=== PATIENT | female | born 1955 | race Caucasian/White ===

== ENCOUNTER 2018-01-30 13:50 | Inpatient (IN) | payer MEDICARE, MEDICAID, OTHER ==
[~2018-01-30] VITALS: Ht 152.4 cm; Wt 77.7 kg
[2018-01-30] MEDS ORDERED: ipratropium/albuterol 3ml nebule NEB ONE (14:00)
[2018-01-30] MEDS ORDERED: normal saline 1000ML IV soln IV ONE (14:00)
[2018-01-30] MEDS ORDERED: CefTRIAXone 2gm/D5W 50ml 50 ML IV ONE (14:00)
[2018-01-30 14:24] LABS: BASOPHILS # (AUTO) 0.1 X10'3 (0-0.2); BASOPHILS % (AUTO) 0.5 % (0-1); EOSINOPHILS # (AUTO) 0.1 X10'3 (0-0.9); EOSINOPHILS % (AUTO) 0.5 % (0-6); HEMATOCRIT 30.2 % (35.0-45.0); HEMOGLOBIN 9.9 g/dl (12.0-16.0); LYMPHOCYTES # (AUTO) 1.7 X10'3 (1.1-4.8); LYMPHOCYTES % (AUTO) 7.9 % (21-51); MEAN CORPUSCULAR HEMOGLOBIN 27.2 PG (27.0-31.0); MEAN CORPUSCULAR HGB CONC 32.8 % (33.0-36.5); MEAN CORPUSCULAR VOLUME 82.9 FL (78-98); MEAN PLATELET VOLUME 11.5 FL (7.4-10.4); MONOCYTES # (AUTO) 1.6 X10'3 (0-0.9); MONOCYTES % (AUTO) 7.5 % (2-12); NEUTROPHILS # (AUTO) 17.6 X10'3 (1.8-7.7); NEUTROPHILS % (AUTO) 83.6 % (42-75); PLATELET COUNT 240 X10'3 (140-440); RED BLOOD COUNT 3.64 X10'6 (4.20-5.60); RED CELL DISTRIBUTION WIDTH 15.4 % (11.5-14.5); WHITE BLOOD COUNT 21.1 X10'3 (4.5-11.0)
[2018-01-30 14:34] LABS: INR 1.1 INR; PARTIAL THROMBOPLASTIN TIME 29 SECONDS (22-32)
[2018-01-30 14:39] LABS: ALANINE AMINOTRANSFERASE 18 U/L (12-78); ALBUMIN/GLOBULIN RATIO 0.9 (1.1-1.5); ALKALINE PHOSPHATASE 58 IU/L (46-116); ANION GAP 7 (8-16); ASPARTATE AMINO TRANSFERASE 21 U/L (10-37); BILIRUBIN,TOTAL 0.6 MG/DL (0.1-1.0); BLOOD UREA NITROGEN 22 MG/DL (7-18); BUN/CREATININE RATIO 15.2 (6.6-38.0); CHLORIDE 105 MMOL/L (99-107); CREATININE 1.45 MG/DL (0.40-0.90); GLUCOSE 102 MG/DL (70-104); MAGNESIUM 1.2 MG/DL (1.5-2.4); POTASSIUM 4.2 MMOL/L (3.5-5.1); SODIUM 137 MMOL/L (135-145); TOTAL CARBON DIOXIDE 25.3 MMOL/L (24-32); TOTAL PROTEIN 6.5 G/DL (6.4-8.2); eGFR 36 ML/MIN
[2018-01-30] MEDS ORDERED: mag hydrox/Alum hydrox/simeth 30ml oral suspension PO PRN (14:55)
[2018-01-30] MEDS ORDERED: magnesium 1gm/100ml D5W IVPB 100 ML IV PRN (14:55)
[2018-01-30] MEDS ORDERED: magnesium hydroxide 30ml (MOM) UD suspension PO PRN (14:55)
[2018-01-30] MEDS ORDERED: potassium Cl 40MEQ/NS 500ml 500 ML IV PRN ×2 (14:55)
[2018-01-30] MEDS ORDERED: magnesium Cl slow-release 64mg tablet PO PRN (14:55)
[2018-01-30] MEDS ORDERED: magnesium 4gm in 100ml NS 100 ML IV PRN (14:55)
[2018-01-30] MEDS ORDERED: ondansetron/PF 4mg/2ml inj IV PRN (14:55)
[2018-01-30] MEDS ORDERED: acetaminophen 325mg tablet PO PRN (14:55)
[2018-01-30] MEDS ORDERED: HYDROmorphone inj. 0.5 MG/0.5 ML DISP.SYRIN IV PRN (14:55)
[2018-01-30] MEDS ORDERED: potassium Cl 20 mEq SR tablet PO PRN ×2 (14:55)
[2018-01-30 14:57] LABS: CLARITY,URINE SLIGHTLY CLOUDY (Clear); COLOR,URINE YELLOW (Yellow); GLUCOSE, URINE NEGATIVE (Neg); KETONES,URINE NEGATIVE (Neg); LEUKOCYTE ESTERASE ,URINE SMALL (Neg); NITRITES, URINE NEGATIVE (Neg); OCCULT BLOOD,URINE NEGATIVE (Neg); PROTEIN,URINE NEGATIVE (Neg)
[2018-01-30 15:00] LABS: UA COLLECTION TYPE CLN CATCH MIDSTREAM
[2018-01-30] MEDS ORDERED: CHOL2000 PO (15:02)
[2018-01-30] MEDS ORDERED: MECL-111 PO (15:02)
[2018-01-30] MEDS ORDERED: METF500T PO (15:02)
[2018-01-30] MEDS ORDERED: TIOT18CA3 INH (15:02)
[2018-01-30] MEDS ORDERED: MONT10TA21 PO (15:02)
[2018-01-30] MEDS ORDERED: FLUT16SP2 BOTHNARES (15:02)
[2018-01-30] MEDS ORDERED: PROP60TA19 PO (15:02)
[2018-01-30] MEDS ORDERED: FELO5TAB4 PO (15:02)
[2018-01-30] MEDS ORDERED: DIAZ5TAB4 PO (15:02)
[2018-01-30] MEDS ORDERED: FENO160T13 PO (15:02)
[2018-01-30] MEDS ORDERED: CITA-278 PO (15:02)
[2018-01-30] MEDS ORDERED: NAPR-996 PO (15:02)
[2018-01-30] MEDS ORDERED: SIMV20TA5 PO (15:02)
[2018-01-30 15:05] LABS: BACTERIA,URINE FEW /HPF (Neg); HYALINE CASTS 0-3 /LPF (NEGATIVE); MUCUS STRANDS FEW /LPF (Neg); RBC,URINE 0-2 /HPF (0-2); SQUAMOUS EPITHELIAL CELL,UR MODERATE /LPF (FEW); WBC,URINE 0-4 /HPF (0-4)
[2018-01-30] MEDS ORDERED: HYDROmorphone 1 mg/ml syringe IV PRN (15:18)
[2018-01-30] MEDS: levoFLOXACIN-Levaquin 750MG/D5 150 ML IV SCH (15:22)
[2018-01-30 16:00] VITALS: BP 104/56
[2018-01-30] MEDS: normal saline 1000ml 1,000 ML IV SCH ×2 (16:36→23:45)
[2018-01-30] MEDS ORDERED: glucagon, human recombinant 1mg kit SUBCUT PRN (16:50)
[2018-01-30] MEDS ORDERED: insulin Lispro (HumaLOG) vial - multi-dose SQ SCH (16:50)
[2018-01-30] MEDS ORDERED: dextrose 50%-water 50ml dispensing syringe IV PRN ×2 (16:50)
[2018-01-30] MEDS ORDERED: dextrose ORAL solution 15 GM/59 ML bottle PO PRN ×2 (16:50)
[2018-01-30] MEDS ORDERED: MESSAGE TO PHARMACY PO ONE (16:50)
[2018-01-30 17:04] LABS: HEMOGLOBIN A1C 6.5 % (4.5-6.2)
[2018-01-30] MEDS: metroNIDAZOLE-Flagyl 500mg/NS 100 ML IV SCH ×2 (17:27→23:43)
[2018-01-30 18:50] VITALS: BP 134/69
[2018-01-30] MEDS: heparin, porcine 5000 units/ml vial SQ SCH (19:57)
[2018-01-30] MEDS: insulin glargine (Lantus) pen - multi-dose SQ SCH (21:00)
[2018-01-30 23:00] VITALS: BP 115/66
[2018-01-31 02:00] VITALS: BP 130/43
[2018-01-31 06:24] LABS: BASOPHILS % (AUTO) 0 % (0-1); EOSINOPHILS # (AUTO) 0.1 X10'3 (0-0.9); EOSINOPHILS % (AUTO) 0.3 % (0-6); HEMOGLOBIN 10.1 g/dl (12.0-16.0); LYMPHOCYTES # (AUTO) 1.2 X10'3 (1.1-4.8); LYMPHOCYTES % (AUTO) 5.6 % (21-51); MEAN CORPUSCULAR HEMOGLOBIN 27.1 PG (27.0-31.0); MEAN CORPUSCULAR HGB CONC 32.4 % (33.0-36.5); MEAN CORPUSCULAR VOLUME 83.6 FL (78-98); MEAN PLATELET VOLUME 11.2 FL (7.4-10.4); MONOCYTES # (AUTO) 1.3 X10'3 (0-0.9); MONOCYTES % (AUTO) 6.3 % (2-12); NEUTROPHILS # (AUTO) 18.2 X10'3 (1.8-7.7); NEUTROPHILS % (AUTO) 87.8 % (42-75); PLATELET COUNT 242 X10'3 (140-440); RED BLOOD COUNT 3.71 X10'6 (4.20-5.60); RED CELL DISTRIBUTION WIDTH 16.7 % (11.5-14.5); WHITE BLOOD COUNT 20.8 X10'3 (4.5-11.0)
[2018-01-31 06:43] LABS: ALANINE AMINOTRANSFERASE 18 U/L (12-78); ALBUMIN 2.8 G/DL (3.4-5.0); ALBUMIN/GLOBULIN RATIO 0.7 (1.1-1.5); ALKALINE PHOSPHATASE 57 IU/L (46-116); ANION GAP 9 (8-16); ASPARTATE AMINO TRANSFERASE 17 U/L (10-37); BILIRUBIN,TOTAL 0.3 MG/DL (0.1-1.0); BLOOD UREA NITROGEN 14 MG/DL (7-18); BUN/CREATININE RATIO 10.2 (6.6-38.0); CALCIUM 8.2 MG/DL (8.5-10.1); CHLORIDE 103 MMOL/L (99-107); CREATININE 1.37 MG/DL (0.40-0.90); GLUCOSE 142 MG/DL (70-104); MAGNESIUM 3.1 MG/DL (1.5-2.4); POTASSIUM 3.9 MMOL/L (3.5-5.1); SODIUM 135 MMOL/L (135-145); TOTAL CARBON DIOXIDE 22.6 MMOL/L (24-32); TOTAL PROTEIN 6.6 G/DL (6.4-8.2); eGFR 39 ML/MIN
[2018-01-31 07:00] VITALS: BP 122/75
[2018-01-31] MEDS: heparin, porcine 5000 units/ml vial SQ SCH ×2 (07:17→20:54)
[2018-01-31] MEDS: metroNIDAZOLE-Flagyl 500mg/NS 100 ML IV SCH (07:17)
[2018-01-31] MEDS: levoFLOXACIN-Levaquin 750MG/D5 150 ML IV SCH (07:17)
[2018-01-31] MEDS: K and/or MAG REPLACEMENT MC SCH (08:00)
[2018-01-31 08:35] LABS: ANISOCYTOSIS 1+; LARGE PLATELETS FEW; PLATELET ESTIMATE NORMAL; TOTAL CELLS COUNTED 100
[2018-01-31] MEDS: normal saline 1000ml 1,000 ML IV SCH ×2 (10:51→20:51)
[2018-01-31 11:00] VITALS: BP 124/59
[2018-01-31 15:00] VITALS: BP 133/69
[2018-01-31] MEDS: piperacillin/tazo 3.375gm/50ml 50 ML IV SCH ×2 (15:09→20:55)
[2018-01-31] MEDS ORDERED: non-formulary drug (Meclizine HCl 1 TAB) PO PRN (16:40)
[2018-01-31] MEDS ORDERED: meclizine 12.5mg tablet PO PRN (16:50)
[2018-01-31 18:00] VITALS: BP 132/72
[2018-01-31] MEDS ORDERED: non-formulary drug (Propranolol Hcl 1 TAB) PO SCH (20:00)
[2018-01-31] MEDS: lactobacillus rhamnosus 10,000 MMU CELLS/CAPSULE PO SCH (20:54)
[2018-01-31] MEDS: atorvastatin 10mg tablet PO SCH (20:55)
[2018-01-31] MEDS: propranolol 40mg tablet PO SCH (20:56)
[2018-01-31] MEDS ORDERED: non-formulary drug (Simvastatin* (Zocor*) 1 TAB) PO SCH (21:00)
[2018-01-31] MEDS: insulin glargine (Lantus) pen - multi-dose SQ SCH (21:00)
[2018-01-31 22:00] VITALS: BP 111/54
[2018-02-01] MEDS: piperacillin/tazo 3.375gm/50ml 50 ML IV SCH ×4 (01:43→20:36)
[2018-02-01 02:00] VITALS: BP 108/61
[2018-02-01 06:00] VITALS: BP 109/50
[2018-02-01 06:28] LABS: BASOPHILS % (AUTO) 0 % (0-1); EOSINOPHILS % (AUTO) 0.2 % (0-6); HEMATOCRIT 28.4 % (35.0-45.0); HEMOGLOBIN 9.2 g/dl (12.0-16.0); LYMPHOCYTES # (AUTO) 1.5 X10'3 (1.1-4.8); LYMPHOCYTES % (AUTO) 7.7 % (21-51); MEAN CORPUSCULAR HEMOGLOBIN 26.7 PG (27.0-31.0); MEAN CORPUSCULAR HGB CONC 32.3 % (33.0-36.5); MEAN CORPUSCULAR VOLUME 82.5 FL (78-98); MEAN PLATELET VOLUME 11.2 FL (7.4-10.4); MONOCYTES # (AUTO) 1.5 X10'3 (0-0.9); MONOCYTES % (AUTO) 7.8 % (2-12); NEUTROPHILS # (AUTO) 15.9 X10'3 (1.8-7.7); NEUTROPHILS % (AUTO) 84.3 % (42-75); PLATELET COUNT 224 X10'3 (140-440); RED BLOOD COUNT 3.44 X10'6 (4.20-5.60); RED CELL DISTRIBUTION WIDTH 16.2 % (11.5-14.5); WHITE BLOOD COUNT 18.9 X10'3 (4.5-11.0)
[2018-02-01 06:47] LABS: ALANINE AMINOTRANSFERASE 17 U/L (12-78); ALBUMIN 2.4 G/DL (3.4-5.0); ALBUMIN/GLOBULIN RATIO 0.6 (1.1-1.5); ALKALINE PHOSPHATASE 67 IU/L (46-116); ANION GAP 10 (8-16); ASPARTATE AMINO TRANSFERASE 20 U/L (10-37); BILIRUBIN,TOTAL 0.4 MG/DL (0.1-1.0); BLOOD UREA NITROGEN 11 MG/DL (7-18); BUN/CREATININE RATIO 8.3 (6.6-38.0); CALCIUM 7.9 MG/DL (8.5-10.1); CHLORIDE 105 MMOL/L (99-107); CREATININE 1.33 MG/DL (0.40-0.90); GLUCOSE 112 MG/DL (70-104); MAGNESIUM 1.6 MG/DL (1.5-2.4); POTASSIUM 3.9 MMOL/L (3.5-5.1); SODIUM 138 MMOL/L (135-145); TOTAL CARBON DIOXIDE 23.5 MMOL/L (24-32); TOTAL PROTEIN 6.2 G/DL (6.4-8.2); eGFR 40 ML/MIN
[2018-02-01 07:11] LABS: LARGE PLATELETS FEW; PLATELET ESTIMATE NORMAL
[2018-02-01] MEDS: K and/or MAG REPLACEMENT MC SCH (07:26)
[2018-02-01] MEDS: vitamin D (cholecalciferol) 1,000 unit tablet PO SCH (07:38)
[2018-02-01] MEDS: amLODIPine 5mg tablet PO SCH (07:38)
[2018-02-01] MEDS: lactobacillus rhamnosus 10,000 MMU CELLS/CAPSULE PO SCH ×2 (07:40→20:23)
[2018-02-01] MEDS: citalopram 20mg tablet PO SCH (07:40)
[2018-02-01] MEDS: diazepam 5mg tablet PO SCH (07:41)
[2018-02-01] MEDS: montelukast 10mg tablet PO SCH (07:41)
[2018-02-01] MEDS: propranolol 40mg tablet PO SCH ×2 (07:42→20:23)
[2018-02-01] MEDS: fluticasone nasal spray 16GM bottle NS SCH (07:42)
[2018-02-01] MEDS: heparin, porcine 5000 units/ml vial SQ SCH ×2 (07:43→20:23)
[2018-02-01] MEDS: fenofibrate 145mg tablet PO SCH (07:44)
[2018-02-01] MEDS: normal saline 1000ml 1,000 ML IV SCH ×3 (07:54→20:36)
[2018-02-01] MEDS ORDERED: FENOFIBRATE PO SCH (08:00)
[2018-02-01] MEDS ORDERED: non-formulary drug (Cholecalciferol (Vitamin D3) (Vitamin D) 1 CAP) PO SCH (08:00)
[2018-02-01] MEDS ORDERED: FELODIPINE PO SCH (08:00)
[2018-02-01] MEDS ORDERED: non-formulary drug (Fluticasone Propionate (Flonase) 2 SPRAYS) BOTHNARES SCH (08:00)
[2018-02-01 11:00] VITALS: BP 149/59
[2018-02-01 15:00] VITALS: BP 133/56
[2018-02-01 18:00] VITALS: BP 136/76
[2018-02-01] MEDS: atorvastatin 10mg tablet PO SCH (20:23)
[2018-02-01] MEDS: insulin glargine (Lantus) pen - multi-dose SQ SCH (21:00)
[2018-02-01 22:00] VITALS: BP 114/50
[2018-02-02 02:00] VITALS: BP 109/58
[2018-02-02] MEDS: piperacillin/tazo 3.375gm/50ml 50 ML IV SCH ×2 (02:05→07:38)
[2018-02-02 05:22] LABS: BASOPHILS % (AUTO) 0 % (0-1); EOSINOPHILS # (AUTO) 0.3 X10'3 (0-0.9); EOSINOPHILS % (AUTO) 1.6 % (0-6); HEMATOCRIT 31.2 % (35.0-45.0); LYMPHOCYTES # (AUTO) 1.6 X10'3 (1.1-4.8); LYMPHOCYTES % (AUTO) 8.7 % (21-51); MEAN CORPUSCULAR HEMOGLOBIN 26.5 PG (27.0-31.0); MEAN CORPUSCULAR HGB CONC 32.1 % (33.0-36.5); MEAN CORPUSCULAR VOLUME 82.6 FL (78-98); MEAN PLATELET VOLUME 11.9 FL (7.4-10.4); MONOCYTES # (AUTO) 1.3 X10'3 (0-0.9); MONOCYTES % (AUTO) 7.5 % (2-12); NEUTROPHILS # (AUTO) 14.8 X10'3 (1.8-7.7); NEUTROPHILS % (AUTO) 82.2 % (42-75); PLATELET COUNT 257 X10'3 (140-440); RED BLOOD COUNT 3.77 X10'6 (4.20-5.60); RED CELL DISTRIBUTION WIDTH 16.7 % (11.5-14.5)
[2018-02-02 05:33] LABS: ALANINE AMINOTRANSFERASE 17 U/L (12-78); ALBUMIN 2.5 G/DL (3.4-5.0); ALBUMIN/GLOBULIN RATIO 0.6 (1.1-1.5); ALKALINE PHOSPHATASE 104 IU/L (46-116); ANION GAP 11 (8-16); ASPARTATE AMINO TRANSFERASE 31 U/L (10-37); BILIRUBIN,TOTAL 0.4 MG/DL (0.1-1.0); BLOOD UREA NITROGEN 9 MG/DL (7-18); CALCIUM 8.1 MG/DL (8.5-10.1); CHLORIDE 106 MMOL/L (99-107); CREATININE 1.28 MG/DL (0.40-0.90); GLUCOSE 113 MG/DL (70-104); MAGNESIUM 1.5 MG/DL (1.5-2.4); POTASSIUM 3.9 MMOL/L (3.5-5.1); SODIUM 140 MMOL/L (135-145); TOTAL CARBON DIOXIDE 22.9 MMOL/L (24-32); TOTAL PROTEIN 6.8 G/DL (6.4-8.2); eGFR 42 ML/MIN
[2018-02-02 07:00] VITALS: BP 116/51
[2018-02-02] MEDS: citalopram 20mg tablet PO SCH (07:36)
[2018-02-02] MEDS: amLODIPine 5mg tablet PO SCH (07:36)
[2018-02-02] MEDS: lactobacillus rhamnosus 10,000 MMU CELLS/CAPSULE PO SCH ×2 (07:36→20:22)
[2018-02-02] MEDS: vitamin D (cholecalciferol) 1,000 unit tablet PO SCH (07:36)
[2018-02-02] MEDS: diazepam 5mg tablet PO SCH (07:36)
[2018-02-02] MEDS: montelukast 10mg tablet PO SCH (07:37)
[2018-02-02] MEDS: propranolol 40mg tablet PO SCH ×2 (07:37→20:23)
[2018-02-02] MEDS: fenofibrate 145mg tablet PO SCH (07:37)
[2018-02-02] MEDS: fluticasone nasal spray 16GM bottle NS SCH (07:39)
[2018-02-02] MEDS: heparin, porcine 5000 units/ml vial SQ SCH ×2 (07:40→20:23)
[2018-02-02] MEDS: K and/or MAG REPLACEMENT MC SCH (08:00)
[2018-02-02 09:53] LABS: LARGE PLATELETS FEW; PLATELET ESTIMATE NORMAL
[2018-02-02 11:00] VITALS: BP 120/61
[2018-02-02] MEDS: CefTRIAXone 2gm/D5W 50ml 50 ML IV SCH (12:15)
[2018-02-02] MEDS: levoFLOXACIN 500mg tablet PO SCH (12:15)
[2018-02-02] MEDS: normal saline 1000ml 1,000 ML IV SCH ×2 (12:36→20:39)
[2018-02-02 15:00] VITALS: BP 135/75
[2018-02-02 18:00] VITALS: BP 138/61
[2018-02-02] MEDS: atorvastatin 10mg tablet PO SCH (20:22)
[2018-02-02] MEDS: insulin glargine (Lantus) pen - multi-dose SQ SCH (20:46)
[2018-02-02 22:00] VITALS: BP 128/71
[2018-02-03 02:00] VITALS: BP 133/67
[2018-02-03 06:53] LABS: BASOPHILS % (AUTO) 0.2 % (0-1); EOSINOPHILS # (AUTO) 0.5 X10'3 (0-0.9); EOSINOPHILS % (AUTO) 3.2 % (0-6); HEMATOCRIT 32.4 % (35.0-45.0); HEMOGLOBIN 10.5 g/dl (12.0-16.0); LYMPHOCYTES # (AUTO) 1.8 X10'3 (1.1-4.8); LYMPHOCYTES % (AUTO) 10.7 % (21-51); MEAN CORPUSCULAR HEMOGLOBIN 26.6 PG (27.0-31.0); MEAN CORPUSCULAR HGB CONC 32.4 % (33.0-36.5); MEAN CORPUSCULAR VOLUME 82.2 FL (78-98); MEAN PLATELET VOLUME 11.3 FL (7.4-10.4); MONOCYTES # (AUTO) 1.3 X10'3 (0-0.9); MONOCYTES % (AUTO) 7.8 % (2-12); NEUTROPHILS # (AUTO) 12.9 X10'3 (1.8-7.7); NEUTROPHILS % (AUTO) 78.1 % (42-75); PLATELET COUNT 340 X10'3 (140-440); RED BLOOD COUNT 3.94 X10'6 (4.20-5.60); RED CELL DISTRIBUTION WIDTH 16.9 % (11.5-14.5); WHITE BLOOD COUNT 16.6 X10'3 (4.5-11.0)
[2018-02-03 07:12] LABS: ALANINE AMINOTRANSFERASE 19 U/L (12-78); ALBUMIN 2.5 G/DL (3.4-5.0); ALBUMIN/GLOBULIN RATIO 0.5 (1.1-1.5); ALKALINE PHOSPHATASE 99 IU/L (46-116); ANION GAP 8 (8-16); ASPARTATE AMINO TRANSFERASE 21 U/L (10-37); BILIRUBIN,TOTAL 0.3 MG/DL (0.1-1.0); BLOOD UREA NITROGEN 8 MG/DL (7-18); BUN/CREATININE RATIO 7.1 (6.6-38.0); CALCIUM 8.5 MG/DL (8.5-10.1); CHLORIDE 105 MMOL/L (99-107); CREATININE 1.12 MG/DL (0.40-0.90); GLUCOSE 87 MG/DL (70-104); MAGNESIUM 1.4 MG/DL (1.5-2.4); POTASSIUM 4.1 MMOL/L (3.5-5.1); SODIUM 137 MMOL/L (135-145); TOTAL CARBON DIOXIDE 23.7 MMOL/L (24-32); TOTAL PROTEIN 7.2 G/DL (6.4-8.2); eGFR 49 ML/MIN
[2018-02-03 07:13] VITALS: BP 125/51
[2018-02-03] MEDS: fluticasone nasal spray 16GM bottle NS SCH (08:35)
[2018-02-03] MEDS: montelukast 10mg tablet PO SCH (08:36)
[2018-02-03] MEDS: propranolol 40mg tablet PO SCH (08:36)
[2018-02-03] MEDS: diazepam 5mg tablet PO SCH (08:36)
[2018-02-03] MEDS: vitamin D (cholecalciferol) 1,000 unit tablet PO SCH (08:36)
[2018-02-03] MEDS: fenofibrate 145mg tablet PO SCH (08:36)
[2018-02-03] MEDS: amLODIPine 5mg tablet PO SCH (08:36)
[2018-02-03] MEDS: citalopram 20mg tablet PO SCH (08:36)
[2018-02-03] MEDS: lactobacillus rhamnosus 10,000 MMU CELLS/CAPSULE PO SCH (08:36)
[2018-02-03] MEDS: heparin, porcine 5000 units/ml vial SQ SCH (08:37)
[2018-02-03] MEDS: CefTRIAXone 2gm/D5W 50ml 50 ML IV SCH (08:37)
[2018-02-03] MEDS: K and/or MAG REPLACEMENT MC SCH (08:46)
[2018-02-03] MEDS: normal saline 1000ml 1,000 ML IV SCH ×2 (08:51→09:09)
[2018-02-03 09:25] LABS: ANISOCYTOSIS 1+; HYPOCHROMASIA 1+; LARGE PLATELETS FEW; PLATELET ESTIMATE NORMAL; POLYCHROMASIA 1+; ROULEAUX 1+
[2018-02-03 11:00] VITALS: BP 131/87
[2018-02-03] MEDS: levoFLOXACIN 500mg tablet PO SCH (11:22)
[2018-02-03] MEDS ORDERED: ALBU8HFA PO (11:40)
[2018-02-03] MEDS ORDERED: LEVO750T21 PO (11:40)
== END 2018-02-03 13:37 | disposition home or self-care (01) | DRG 871 ==
LOC: ER 13:51 → ED HOLD 14:51 → PCU 3S 16:00 → CMPBEDREQ 19:36 → PCU 3S 02-01 03:03
PROVIDERS: ADMIT Internal Medicine; ATTEND Family Medicine
DX: A41.9 Sepsis, unspecified organism (principal); J96.01 Acute respiratory failure with hypoxia; J18.9 Pneumonia, unspecified organism; N17.0 Acute kidney failure with tubular necrosis; J44.0 Chronic obstructive pulmonary disease with (acute) lower respiratory infection; E11.9 Type 2 diabetes mellitus without complications; E78.00 Pure hypercholesterolemia, unspecified; E78.5 Hyperlipidemia, unspecified; E86.0 Dehydration; F17.210 Nicotine dependence, cigarettes, uncomplicated; F43.10 Post-traumatic stress disorder, unspecified; F32.9 Major depressive disorder, single episode, unspecified; B95.61 Methicillin susceptible Staphylococcus aureus infection as the cause of diseases classified elsewhere; I10 Essential (primary) hypertension; Z99.81 Dependence on supplemental oxygen; Z79.84 Long term (current) use of oral hypoglycemic drugs; Z79.899 Other long term (current) drug therapy
CPT/HCPCS: 36415; 71045; 71250; 80053; 81001; 82948; 83036; 83605; 83735; 84145; 85025; 85610; 85730; 87040; 87070; 87077; 87088; 87186; 93005; 94640; 94760; 96365; 99285; A6212; J0696; J1170; J1644; J1815; J1956; J2543; J3475; J3490; J7030

== ENCOUNTER 2019-06-08 14:33 | Emergency (ER) | payer MEDICARE, MEDICAID ==
[~2019-06-08] VITALS: Ht 152.4 cm; Wt 60.3 kg
[~2019-06-08 14:33] MED LIST: CHOL2000 PO; CITA20TA28 PO; DIAZ5TAB4 PO; FELO5TAB46 PO; FENO160T13 PO; FLUT16SP2 BOTHNARES; MECL-111 PO; METF500T PO; MONT10TA21 PO; NAPR-996 PO; PROP60TA19 PO; SIMV-42 PO; TIOT18CA3 INH
[2019-06-08 14:42] VITALS: BP 128/65
[2019-06-08] MEDS ORDERED: ketorolac tromethamine 15mg/ml inj. IM ONE (15:45)
[2019-06-08] MEDS ORDERED: CYCL-1 PO (15:49)
[2019-06-08] MEDS ORDERED: IBUP-1984 PO (15:49)
[2019-06-08] MEDS ORDERED: BENZ9GEL3 TOP (15:52)
[2019-06-09] MEDS ORDERED: ketorolac tromethamine 15mg/ml inj. IM ONE (16:20)
== END 2019-06-08 16:06 | disposition home or self-care (01) ==
LOC: ER 14:34
DX: S29.012A Strain of muscle and tendon of back wall of thorax, initial encounter (principal); G89.29 Other chronic pain; E78.00 Pure hypercholesterolemia, unspecified; I10 Essential (primary) hypertension; J44.9 Chronic obstructive pulmonary disease, unspecified; F17.200 Nicotine dependence, unspecified, uncomplicated; Z79.899 Other long term (current) drug therapy; X50.1XXA Overexertion from prolonged static or awkward postures, initial encounter; Y93.89 Activity, other specified; Y92.89 Other specified places as the place of occurrence of the external cause; Y99.9 Unspecified external cause status
CPT/HCPCS: 96372; 99283; J1885